=== PATIENT | male | born 1975 | race Caucasian/White ===

== ENCOUNTER → 2017-04-12 | Outpatient (CLI) | payer BC ==
--- NOTE | 2017-04-12 17:10 | RAD ---
HISTORY: Left shoulder pain. Study: Left shoulder three views Comparison: None. Findings: The appearance of the clavicle and AC joint are unremarkable. The glenohumeral articulation is norm al in its appearance. No acute cortical disruption or dislocation can be identified. The visualize d portions of the scapula are unremarkable. In addition, the visualized portions of the chest appea r unremarkable. IMPRESSION: 1. Negative exam. Reported By:
[2017-04-12 17:18] LABS: BASOPHILS # (AUTO) 0.1 X10^3/uL (0.0-0.1); BASOPHILS % (AUTO) 0.9 % (0.2-1.0); EOSINOPHILS # (AUTO) 0.2 x10^3/uL (0.0-0.2); EOSINOPHILS % (AUTO) 1.7 % (0.9-2.9); HEMATOCRIT 48.2 % (42.0-54.0); HEMOGLOBIN 16.6 g/dL (13.5-18.0); LYMPHOCYTES # (AUTO) 2.5 X10^3/uL (1.3-2.9); LYMPHOCYTES % (AUTO) 28.3 % (21.0-51.0); MEAN CORPUSCULAR HEMOGLOBIN 32.4 pg (27.0-34.0); MEAN CORPUSCULAR HGB CONC 34.5 g/dL (33.0-35.0); MEAN CORPUSCULAR VOLUME 93.9 fL (80.0-100.0); MEAN PLATELET VOLUME 8.5 fL (7.4-11.0); MONOCYTES # (AUTO) 0.9 x10^3/uL (0.3-0.8); MONOCYTES % (AUTO) 10.4 % (0.0-13.0); NEUTROPHILS # (AUTO) 5.2 x10^3/uL (2.2-4.8); NEUTROPHILS % (AUTO) 58.7 % (42.0-75.0); PLATELET COUNT 235 X10^3/uL (150.0-450.0); RED BLOOD COUNT 5.13 X10^6/uL (4.7-6.0); RED CELL DISTRIBUTION WIDTH 13.4 % (11.6-16.5); WHITE BLOOD COUNT 8.9 X10^3/uL (3.6-10.0)
[2017-04-12 17:36] LABS: ALANINE AMINOTRANSFERASE 37 Units/L (12-78); ALBUMIN 3.8 g/dL (3.4-5.0); ALKALINE PHOSPHATASE 101 Units/L (46-116); ASPARTATE AMINO TRANSFERASE 21 Units/L (15-37); BLOOD UREA NITROGEN 10 mg/dL (7-18); CALCIUM 8.8 mg/dL (8.5-10.1); CARBON DIOXIDE 30.7 mmol/L (21-32); CHLORIDE 106 mmol/L (98-107); COR NA(FOR HYPERGLY) 144 mmol/L (136-145); CREATININE 1.12 mg/dL (0.70-1.30); GLUCOSE 127 mg/dL (65-99); SODIUM 143 mmol/L (136-145); TOTAL PROTEIN 6.9 g/dL (6.4-8.2); TROPONIN I < 0.02 ng/mL (0-1.5); eGFR BLACK RACES > 60 (>60); eGFR NON BLACK RACES > 60 (>60)
[2017-04-12 18:01] LABS: TSH (3RD GENERATION) 1.379 uIU/mL (0.358-3.74)
--- NOTE | 2017-04-13 07:15 | RAD ---
The five views of the cervical spine indication: Left shoulder pain Findings: The atlantoaxial joint is symmetric. The cervical spine is well seen to the level of C7 on lateral projection. There is no fracture vertebral height loss, spondylolisthesis or prevertebral s oft tissue swelling. There is very mild discogenic degenerative change noted at C4-5, C5-6 and C6-7. Posterior elements demonstrate normal alignment. There is mild left-sided C3-4 bony neural foramina l stenosis and right-sided C3-4 and C4-5 bony neural foraminal stenosis. Impression: Mild bilateral bony neural foraminal narrowing as discussed above. No acute fracture spondylolisthes is or prevertebral soft tissue swelling within cervical spine. Reported By:
== END ==
LOC: LAB 16:27
PROVIDERS: ATTEND Nurse Practitioner Family
DX: R07.89 Other chest pain (principal); R20.0 Anesthesia of skin; M25.512 Pain in left shoulder
CPT/HCPCS: 36415; 72050; 73030; 80053; 82550; 82552; 84443; 84484; 85025

== ENCOUNTER 2023-06-09 09:46 | Inpatient (IN) ==
[~2023-06-09 09:46] MED LIST: PHENOBARBITAL SODIUM INJ 65 MG VIAL IM PRN
--- NOTE | 2023-06-09 10:06 | DR.SEIZA ---
HPI Time Seen Time Seen by Provider: 06/09/23 10:06 Complaints Chief Complaint Doctors Comments: 47 y/o male brought in by EMS. Pt was sitting on porch this am. Had sudden onset of seizure activity, generalized shaking, with LOC. Pt in post ictal state on their arrival, has since cleared. No acute injury from seizure. Pt with a h/o chronic ETOH use. Switched from 6-12 beers /day, to daily liquor. Trying to cut back. Has had senveral months of frequent vomiting. Has a 40 lb weight loss over the past 6 months. Established with a PCP 2 days ago. Labs showed K+ 2.7, started KCl yesterday, but had increased vomiting last pm, couldn't take. Reviewed Nurses Notes Reviewed: Yes Source History Provided: Patient PMH PMH Past Medical History: Yes Past Medical History Comment: Childhood seizures Past Surgical History: No Family History History of Family Medical Conditions: Yes Family Medical History: Diabetes Mellitus, Cancer, [place], Coronary Artery Disease and Hypertension Social History Does patient currently use any type of tobacco product: Yes Type of Tobacco Use: Cigarettes Alcohol Use: DAILY ROS Review of Systems Constitutional: Malaise, Weakness and Loss of Appetite Eyes: No Symptoms Reported ENTM: No Symptoms Reported Respiratoy: No Symptoms Reported Cardiovascular: No Symptoms Reported Gastrointestinal/Abdominal: Vomiting Genitourinary: No Symptoms Reported Neurological: Seizure and Weakness Musculoskeletal: No Symptoms Reported Integumentary: No Symptoms Reported Hematologic/Lymphatic: No Symptoms Reported All Other Systems: Reviewed and Negative PE Vital Signs Vitals: Vital Signs Pulse Rate 96 Pulse Rate 82 Pulse Rate 82 Respiratory Rate 27 Respiratory Rate 20 Respiratory Rate 22 O2 Sat by Pulse Oximetry 99 O2 Sat by Pulse Oximetry 98 O2 Sat by Pulse Oximetry 99 General General Appearance: Alert and In No Apparent Distress Head Head Exam: Normal Inspection, Atraumatic and Normocephalic Eyes Eye exam: PERRL and EOMI ENT ENT Exam: Normal Oropharynx and Mucous Membranes Moist Neck Neck Exam: Normal Inspection; negative Tenderness Respiratory Respiratory Exam: Normal Lung Sounds Bilat; negative Accessory Muscle Use or Respiratory Distress Cardiovascular Cardiovascular Exam: Regular Rate, Normal Rhythm and Normal Heart Sounds Abdominal Exam Abdominal Exam: Normal Inspection, Normal Bowel Sounds and Soft; negative Tenderness Extremities Extremities Exam: Normal Inspection and Full ROM; negative Edema Neurologic Neurological Exam: Alert, Oriented X3 and CN II-XII Intact; negative Motor Sensory Deficit Skin Skin Exam: Warm and Dry COURSE Treatment Treatment: 47 y/o male with seizure [employer]. + chronic alcohol use, with weight loss. W/u initiated. Givne IV fluids, IV ativan. 1245 - pt remains stable in ER. CT brain, CXR acceptable. Labs show low potassium, 2.5. Given IV KCl. Recommend admission, pt accepted by Dr Villagran. [facility]OR Labs Reviewed Laboratory Results Reviewed?: Yes Result Diagrams: 06/09/23 10:23 06/09/23 10:23 Laboratory: WBC 6.1 X10^3/uL (3.6-10.0) 06/09/23 10:23 RBC 3.73 X10^6/uL (4.7-6.0) L 06/09/23 10:23 Hgb 13.5 g/dL (13.5-18.0) 06/09/23 10:23 Hct 38.0 % (42.0-54.0) L 06/09/23 10:23 MCV 101.8 fL (80.0-100.0) H 06/09/23 10:23 MCH 36.0 pg (27.0-34.0) H 06/09/23 10:23 MCHC 35.4 g/dL (33.0-35.0) H 06/09/23 10:23 RDW 15.2 % (11.6-16.5) 06/09/23 10:23 Plt Count 131 X10^3/uL (150.0-450.0) L 06/09/23 10:23 MPV 8.4 fL (7.4-11.0) 06/09/23 10:23 Neut % (Auto) 75.6 % (42.0-75.0) H 06/09/23 10:23 Lymph % (Auto) 12.1 % (21.0-51.0) L 06/09/23 10:23 [place] % (Auto) 11.7 % (0.0-13.0) 06/09/23 10:23 Eos % (Auto) 0.2 % (0.9-2.9) L 06/09/23 10:23 Baso % (Auto) 0.4 % (0.2-1.0) 06/09/23 10:23 Neut # (Auto) 4.6 x10^3/uL (2.2-4.8) 06/09/23 10:23 Lymph # (Auto) 0.7 X10^3/uL (1.3-2.9) L 06/09/23 10:23 [place] # (Auto) 0.7 x10^3/uL (0.3-0.8) 06/09/23 10:23 Eos # (Auto) 0.0 x10^3/uL (0.0-0.2) 06/09/23 10:23 Baso # (Auto) 0.0 X10^3/uL (0.0-0.1) 06/09/23 10:23 Absolute Nucleated RBC 0.2 /100WBC 06/09/23 10:23 Sodium 131 mmol/L (136-145) L 06/09/23 10:23 Corrected Sodium 131 mmol/L (136-145) L 06/09/23 10:23 Potassium 2.5 mmol/L (3.5-5.1) L* 06/09/23 10:23 Chloride 85 mmol/L (98-107) L 06/09/23 10:23 Carbon Dioxide 31.3 mmol/L (21-32) 06/09/23 10:23 BUN 3 mg/dL (7-18) L 06/09/23 10:23 Creatinine 0.77 mg/dL (0.70-1.30) 06/09/23 10:23 Est GFR (MDRD) Af Amer > 60 (>60) 06/09/23 10:23 Est GFR (MDRD) Non-Af > 60 (>60) 06/09/23 10:23 Glucose 115 mg/dL (65-99) H 06/09/23 10:23 Calcium 8.7 mg/dL (8.5-10.1) 06/09/23 10:23 Corrected Calcium 9.3 mg/dL (8.5-10.1) 06/09/23 10:23 Total Bilirubin 1.70 mg/dL (0.2-1.0) H 06/09/23 10:23 AST 223 Units/L (15-37) H 06/09/23 10:23 ALT 64 Units/L (12-78) 06/09/23 10:23 Alkaline Phosphatase 226 Units/L (46-116) H 06/09/23 10:23 Ammonia 28 umol/L (11-32) 06/09/23 10:23 Total Protein 6.4 g/dL (6.4-8.2) 06/09/23 10:23 Albumin 3.3 g/dL (3.4-5.0) L 06/09/23 10:23 Globulin 3.1 g/dL (2.5-4.5) 06/09/23 10:23 Albumin/Globulin Ratio 1.1 Ratio (1.1-2.1) 06/09/23 10:23 Lipase 148 Units/L (73-393) 06/09/23 10:23 Vitamin B12 261 pg/mL (193-986) 06/09/23 10:23 Folate 2.5 ng/mL (>8.6) L 06/09/23 10:23 TSH 3rd Generation 0.955 uIU/mL (0.358-3.74) 06/09/23 10:23 Ethyl Alcohol mg/dL 60 mg/dL (0-19.9) H 06/09/23 10:23 K+ 2.5 XRAY XRAY Interpreted by: Both X-ray Results: CXR, CT brain - -no acute abnormalities EKG Rate: 90 [place]: Normal Rhythm: NSR Block: None ST: Normal Opioid Opioid Risk Tool Total: 0 Total Score Risk Category: Low Risk Copyright: Camilo BURROWS predicting aberrant behaviors Discharge Plan Diagnosis Discharge Problem: Acute hypokalemia, Chronic alcohol use, Vomiting, Seizure Discharge Plan Patient Disposition: ADMITTED INPATIENT Condition: Stable
[2023-06-09 10:08] VITALS: BMI 18.4
[2023-06-09] MEDS ORDERED: NS 1,000 ML IV 1,000 ML IV ONE (10:08)
[2023-06-09] MEDS ORDERED: ATIVAN TAB 1 MG PO ONE (10:10)
[2023-06-09] MEDS ORDERED: ATIVAN INJ 2 MG VIAL ONE (10:11)
[2023-06-09] MEDS ORDERED: NS 1,000 ML IV 1,000 ML ONE ×2 (10:11→11:43)
[2023-06-09] MEDS ORDERED: ATIVAN TAB 1 MG ONE (10:13)
[2023-06-09] MEDS ORDERED: ZOFRAN INJ 4 MG VIAL IVP ONE (10:17)
[2023-06-09] MEDS ORDERED: ZOFRAN INJ 4 MG VIAL ONE (10:17)
--- NOTE | 2023-06-09 10:19 | EKG ---
Test Reason : LOC Blood Pressure : */* mmHG Vent. Rate : 90 BPM Atrial Rate : 90 BPM P-R Int : 152 ms QRS Dur : 98 ms QT Int : 410 ms P-R-T Axes : 72 26 35 degrees QTc Int : 501 ms Normal sinus rhythm Normal ECG No previous ECGs available Confirmed by Renato Ambrocio ([id number]) on 06/09/2023 2:03:31 PM Referred By: Confirmed By: Renato Ambrocio
[2023-06-09 10:32] LABS: BASOPHILS % (AUTO) 0.4 % (0.2-1.0); EOSINOPHILS % (AUTO) 0.2 % (0.9-2.9); HEMOGLOBIN 13.5 g/dL (13.5-18.0); LYMPHOCYTES # (AUTO) 0.7 X10^3/uL (1.3-2.9); LYMPHOCYTES % (AUTO) 12.1 % (21.0-51.0); MEAN CORPUSCULAR HGB CONC 35.4 g/dL (33.0-35.0); MEAN CORPUSCULAR VOLUME 101.8 fL (80.0-100.0); MEAN PLATELET VOLUME 8.4 fL (7.4-11.0); MONOCYTES # (AUTO) 0.7 x10^3/uL (0.3-0.8); MONOCYTES % (AUTO) 11.7 % (0.0-13.0); NEUTROPHILS # (AUTO) 4.6 x10^3/uL (2.2-4.8); NEUTROPHILS % (AUTO) 75.6 % (42.0-75.0); PLATELET COUNT 131 X10^3/uL (150.0-450.0); RED BLOOD COUNT 3.73 X10^6/uL (4.7-6.0); RED CELL DISTRIBUTION WIDTH 15.2 % (11.6-16.5); WHITE BLOOD COUNT 6.1 X10^3/uL (3.6-10.0)
[2023-06-09 10:40] LABS: AMMONIA 28 umol/L (11-32)
[2023-06-09 10:52] LABS: ALANINE AMINOTRANSFERASE 64 Units/L (12-78); ALBUMIN 3.3 g/dL (3.4-5.0); ALKALINE PHOSPHATASE 226 Units/L (46-116); ASPARTATE AMINO TRANSFERASE 223 Units/L (15-37); BLOOD UREA NITROGEN 3 mg/dL (7-18); CALCIUM 8.7 mg/dL (8.5-10.1); CARBON DIOXIDE 31.3 mmol/L (21-32); CHLORIDE 85 mmol/L (98-107); COR CA(FOR HYPOALB) 9.3 mg/dL (8.5-10.1); COR NA(FOR HYPERGLY) 131 mmol/L (136-145); CREATININE 0.77 mg/dL (0.70-1.30); GLUCOSE 115 mg/dL (65-99); LIPASE 148 Units/L (73-393); SODIUM 131 mmol/L (136-145); TOTAL PROTEIN 6.4 g/dL (6.4-8.2); TSH (3RD GENERATION) 0.955 uIU/mL (0.358-3.74); eGFR NON BLACK RACES > 60 (>60)
[2023-06-09 11:01] LABS: POTASSIUM 2.5 mmol/L (3.5-5.1)
[2023-06-09] MEDS ORDERED: K-RIDER 10 MEQ/NS 100 ML 10 MEQ/100 ML BAG IV ONE ×2 (11:06→11:23)
--- NOTE | 2023-06-09 11:12 | CT ---
HISTORYACUTE SEIZURE, WEAKNESSSTUDYBRAIN W/O CONCOMPARISONNone.TECHNIQUEMultiple axial images of the head were performed from the skullbase to the vertex using standard departmental protocol. Sagittal and coronal reformatted images were performed. Dose reduction techniques including Automated Exposure Control (AEC) and adjustment of mA and kV were utilized.FINDINGSThe lateral ventricles and basilar cisterns are patent.No parenchymal mass or hematoma. [place]-white differentiation appears acutely preserved.No extra-axial collection.The globes are intact.No air fluid levels in the paranasal sinuses. No paranasal sinus wall thickening or sclerosis. Mastoid air cells are clear.The calvarium is intact.IMPRESSIONNo acute intracranial abnormality.Electronically signed by: Eugene Chowdhury (Jun 09, 2023 11:11:45)
[2023-06-09] MEDS ORDERED: NS 1,000 ML IV 1,000 ML IV SCH (12:00)
[2023-06-09 13:07] LABS: BILIRUBIN,URINE NEGATIVE (NEGATIVE); BLOOD/HEMOGLOBIN,URINE NEGATIVE (NEGATIVE); GLUCOSE, URINE NEGATIVE (NEGATIVE); KETONES,URINE 2+ (NEGATIVE); LEUKOCYTE ESTERASE ,URINE NEGATIVE (NEGATIVE); NITRITES,URINE NEGATIVE (NEGATIVE); PROTEIN,URINE NEGATIVE (NEGATIVE); UROBILINOGEN,URINE 3+ (NORMAL)
[2023-06-09 13:14] LABS: APPEARANCE,URINE CLEAR (CLEAR); BACTERIA,URINE TRACE /HPF (NEGATIVE); COLOR,URINE YELLOW (YELLOW); RBC,URINE 0-2 /HPF (0-3); SQUAMOUS EPITHELIAL CELL,UR RARE /HPF (NEGATIVE)
[2023-06-09] MEDS ORDERED: MOTRIN TAB 800 MG PO PRN (14:41)
[2023-06-09] MEDS ORDERED: CONSULT PHARMACY - POTASSIUM & MAGNESIUM XX SCH ×3 (14:53→15:00)
[2023-06-09] MEDS ORDERED: ZOFRAN INJ 4 MG VIAL IVP PRN (14:53)
[2023-06-09] MEDS ORDERED: ATIVAN 20 MG/10 ML VIAL IVP SCH (14:53)
[2023-06-09] MEDS ORDERED: KAOPECTATE (NEW FORMULA) PO PRN (14:54)
[2023-06-09] MEDS ORDERED: MILK OF MAGNESIA PO PRN (14:54)
[2023-06-09] MEDS ORDERED: MAALOX or MYLANTA PO PRN (14:54)
[2023-06-09] MEDS: K-DUR TAB 20 MEQ PO SCH ×2 (15:07→17:07)
[2023-06-09] MEDS ORDERED: READI-CAT 2 ONE (15:07)
[2023-06-09] MEDS: NS 1,000 ML IV 1,000 ML with MAGNESIUM SULFATE 50% INJ VIAL 1 G, MVI INJ (ADULT) 10 ML,... IV SCH ×4 (16:18)
[2023-06-09] MEDS: NICOTINE PATCH TD SCH (16:28)
[2023-06-09] MEDS: ATIVAN INJ 2 MG VIAL IVP SCH ×2 (16:29→23:48)
[2023-06-09] MEDS: THIAMINE HCL INJ IM SCH (16:30)
--- NOTE | 2023-06-09 16:59 | RAD ---
HISTORYACUTE SEIZURE, WEAKNESSSTUDYCHEST x-ray, 1 VIEWCOMPARISONNoneFINDINGSThe trachea is midline. The cardiac silhouette is unremarkable .Lungs appear clear. A few external densities are seen projected overlying the lungs. No pneumothorax or pleural effusion is seen.No acute bony abnormality is seen.IMPRESSIONNo acute cardiopulmonary abnormality is seen.Electronically signed by: Kj Vidal (Jun 09, 2023 16:57:26)
[2023-06-09] MEDS: PHENOBARBITAL TAB 30 MG (32.4MG) PO SCH ×2 (17:07→20:36)
[2023-06-09] MEDS ORDERED: OMNIPAQUE 350 mg/mL 100 mL BTL 100 ML ONE (17:21)
[2023-06-09] MEDS ORDERED: NS 100 ML IV 100 ML ONE (17:21)
[2023-06-09] MEDS ORDERED: MICRO K EXTEN CAP 10 MEQ PO SCH (19:00)
--- NOTE | 2023-06-09 19:03 | CT ---
HISTORYabdominal pain, elevated liver enzymesSTUDYABDOMEN/PELVIS WITH CONCOMPARISONTECHNIQUEMultiple axial images of the abdomen and pelvis were obtained from the lung bases to the pubic symphysis after the administration of IV contrast. Dose reduction techniques including Automated Exposure Control (AEC) and adjustment of mA and kV were utilized.FINDINGSThe lung bases are clear without effusion. The heart size is normal. There is diffuse fatty infiltration of the liver. There is nonspecific wall thickening in the gallbladder. The pancreas, spleen, adrenal glands, and kidneys are normal. The stomach is grossly normal. The small bowel loops are normal. The appendix is normal. There is nonspecific wall thickening in the proximal colon. There are scattered diverticula in the distal colon but no diverticulitis. Bladder wall is thickened. The prostate measures 3.8 cm in diameter. There is no worrisome bone marrow lesion.IMPRESSION1. Fatty infiltration of the liver. 2. Nonspecific gallbladder wall thickening. 3. Nonspecific wall thickening in the proximal colon which could be some form of colitis. 4. Mild diverticulosis in the distal colon.Electronically signed by: Regan Parker (Jun 09, 2023 19:02:37)
[2023-06-09] MEDS ORDERED: NS + KCL 20 MEQ/L 1,000 ML IV SCH (21:00)
[2023-06-09] MEDS: MAGNESIUM SULFATE 1 GRAM/100 mL PREMIX 1 G/100 ML BAG IV SCH (22:02)
[2023-06-09] MEDS: AMBIEN PO SCH (23:47)
[2023-06-10 00:01] VITALS: RESP 20
[2023-06-10] MEDS: MAGNESIUM SULFATE 1 GRAM/100 mL PREMIX 1 G/100 ML BAG IV SCH ×3 (05:50→21:58)
[2023-06-10 06:40] LABS: BASOPHILS % (AUTO) 0.3 % (0.2-1.0); EOSINOPHILS % (AUTO) 0.8 % (0.9-2.9); HEMATOCRIT 34.8 % (42.0-54.0); HEMOGLOBIN 12.4 g/dL (13.5-18.0); LYMPHOCYTES # (AUTO) 1.2 X10^3/uL (1.3-2.9); LYMPHOCYTES % (AUTO) 21.5 % (21.0-51.0); MEAN CORPUSCULAR HEMOGLOBIN 36.4 pg (27.0-34.0); MEAN CORPUSCULAR HGB CONC 35.6 g/dL (33.0-35.0); MEAN CORPUSCULAR VOLUME 102.2 fL (80.0-100.0); MEAN PLATELET VOLUME 8.9 fL (7.4-11.0); MONOCYTES # (AUTO) 0.6 x10^3/uL (0.3-0.8); MONOCYTES % (AUTO) 11.1 % (0.0-13.0); NEUTROPHILS # (AUTO) 3.7 x10^3/uL (2.2-4.8); NEUTROPHILS % (AUTO) 66.3 % (42.0-75.0); PLATELET COUNT 111 X10^3/uL (150.0-450.0); RED BLOOD COUNT 3.41 X10^6/uL (4.7-6.0); RED CELL DISTRIBUTION WIDTH 15.3 % (11.6-16.5); WHITE BLOOD COUNT 5.6 X10^3/uL (3.6-10.0)
[2023-06-10 06:49] LABS: ALANINE AMINOTRANSFERASE 54 Units/L (12-78); ALBUMIN 2.7 g/dL (3.4-5.0); ALKALINE PHOSPHATASE 204 Units/L (46-116); ASPARTATE AMINO TRANSFERASE 229 Units/L (15-37); BLOOD UREA NITROGEN 2 mg/dL (7-18); CALCIUM 8.2 mg/dL (8.5-10.1); CARBON DIOXIDE 35.9 mmol/L (21-32); CHLORIDE 96 mmol/L (98-107); COR CA(FOR HYPOALB) 9.2 mg/dL (8.5-10.1); CREATININE 0.65 mg/dL (0.70-1.30); GLUCOSE 95 mg/dL (65-99); POTASSIUM 3.3 mmol/L (3.5-5.1); SODIUM 137 mmol/L (136-145); TOTAL PROTEIN 5.5 g/dL (6.4-8.2); eGFR NON BLACK RACES > 60 (>60)
[2023-06-10] MEDS ORDERED: CONSULT PHARMACY - POTASSIUM & MAGNESIUM XX SCH (08:00)
--- NOTE | 2023-06-10 08:26 | DR.H&P ---
H&P History & Physical for Day of: H&P Date: 06/09/23 Chief Complaint Chief Complaint: Seizure like episode Weakness Abdominal pain/nausea and vomiting Weight loss Allergies Allergies Allergy/AdvReac Type Severity Reaction Status Date / Time Pencillin AdvReac Severe Uncoded 06/07/23 09:57 History of Present Illness History of Present Illness: Pt is a 47 year old male past medical history Alcohol abuse presenting after a "seizure like" event. Per son, pt was found around 9AM on ground and "tensed" up with "jerking" movements that lasted a few minutes. Pt did not have have urinary/bowel incontinence after episode but did have a headache. He reports a history of seizure but only in childhood and has not had any since he was 12 years old. He is currently a heavy alcohol user, drinking a "pint" of liquor a day. He has been trying to decrease his alcohol intake. Reports abdominal pain with nausea and vomiting. He has lost 40 lbs over the past year. Labs/imaging: Wbc 6.1, Hgb 13.5, Plt 131, Na 131, K 2.5, Creatinine 0.77, Glucose 115, AST 223, ALT 64, ALKP 226, +EtOH, UA negative, Brain CT was obtained that revealed no acute intracranial abnormalities. CXR: negative. Pt was admitted for Seizure episode likely due to Alcohol withdrawal, Acute hypokalemia, Elevated liver enzymes, and abnormal weight loss. Will start on Detox protocol and IV ativan 1mg q8h, monitor withdrawal symptoms. Will order CT abdomen and pelvis, hepatitis panel, CEA, CA 19-9, and GGT. Consult surgery- Dr Washburn for further evaluation. Continue to closely monitor and follow up labs/imaging. Past Medical History Past Medical History: Seizures Past Surgical History Surgical History: Other Family History Family Medical History: Diabetes Mellitus, Cancer, [place], Coronary Artery Disease and Hypertension Social History Does patient currently use any type of tobacco product: Yes Have you used tobacco products in the last 12 months: Yes Type of Tobacco Use: Cigarettes Does any household member use tobacco: Yes Alcohol Use: DAILY Drug Use: None Labs Result Diagrams: 06/10/23 05:45 06/10/23 05:45 Labs: Laboratory WBC 5.6 X10^3/uL (3.6-10.0) 06/10/23 05:45 RBC 3.41 X10^6/uL (4.7-6.0) L 06/10/23 05:45 Hgb 12.4 g/dL (13.5-18.0) L 06/10/23 05:45 Hct 34.8 % (42.0-54.0) L 06/10/23 05:45 MCV 102.2 fL (80.0-100.0) H 06/10/23 05:45 MCH 36.4 pg (27.0-34.0) H 06/10/23 05:45 MCHC 35.6 g/dL (33.0-35.0) H 06/10/23 05:45 RDW 15.3 % (11.6-16.5) 06/10/23 05:45 Plt Count 111 X10^3/uL (150.0-450.0) L 06/10/23 05:45 MPV 8.9 fL (7.4-11.0) 06/10/23 05:45 Neut % (Auto) 66.3 % (42.0-75.0) 06/10/23 05:45 Lymph % (Auto) 21.5 % (21.0-51.0) 06/10/23 05:45 [place] % (Auto) 11.1 % (0.0-13.0) 06/10/23 05:45 Eos % (Auto) 0.8 % (0.9-2.9) L 06/10/23 05:45 Baso % (Auto) 0.3 % (0.2-1.0) 06/10/23 05:45 Neut # (Auto) 3.7 x10^3/uL (2.2-4.8) 06/10/23 05:45 Lymph # (Auto) 1.2 X10^3/uL (1.3-2.9) L 06/10/23 05:45 [place] # (Auto) 0.6 x10^3/uL (0.3-0.8) 06/10/23 05:45 Eos # (Auto) 0.0 x10^3/uL (0.0-0.2) 06/10/23 05:45 Baso # (Auto) 0.0 X10^3/uL (0.0-0.1) 06/10/23 05:45 Absolute Nucleated RBC 0.4 /100WBC 06/10/23 05:45 Sodium 137 mmol/L (136-145) 06/10/23 05:45 Corrected Sodium TNP 06/10/23 05:45 Potassium 3.3 mmol/L (3.5-5.1) L 06/10/23 05:45 Chloride 96 mmol/L (98-107) L 06/10/23 05:45 Carbon Dioxide 35.9 mmol/L (21-32) H 06/10/23 05:45 BUN 2 mg/dL (7-18) L 06/10/23 05:45 Creatinine 0.65 mg/dL (0.70-1.30) L 06/10/23 05:45 Est GFR (MDRD) Af Amer > 60 (>60) 06/10/23 05:45 Est GFR (MDRD) Non-Af > 60 (>60) 06/10/23 05:45 Glucose 95 mg/dL (65-99) 06/10/23 05:45 Calcium 8.2 mg/dL (8.5-10.1) L 06/10/23 05:45 Corrected Calcium 9.2 mg/dL (8.5-10.1) 06/10/23 05:45 Magnesium 2.1 mg/dL (2.0-2.9) 06/10/23 05:45 Total Bilirubin 2.20 mg/dL (0.2-1.0) H 06/10/23 05:45 AST 229 Units/L (15-37) H 06/10/23 05:45 ALT 54 Units/L (12-78) 06/10/23 05:45 Alkaline Phosphatase 204 Units/L (46-116) H 06/10/23 05:45 Ammonia 28 umol/L (11-32) 06/09/23 10:23 Total Protein 5.5 g/dL (6.4-8.2) L 06/10/23 05:45 Albumin 2.7 g/dL (3.4-5.0) L 06/10/23 05:45 Globulin 2.8 g/dL (2.5-4.5) 06/10/23 05:45 Albumin/Globulin Ratio 1.0 Ratio (1.1-2.1) L 06/10/23 05:45 Lipase 148 Units/L (73-393) 06/09/23 10:23 Vitamin B12 261 pg/mL (193-986) 06/09/23 10:23 Folate 2.5 ng/mL (>8.6) L 06/09/23 10:23 TSH 3rd Generation 0.955 uIU/mL (0.358-3.74) 06/09/23 10:23 Specimen Type Random urine 06/09/23 12:52 Urine Color Yellow (YELLOW) 06/09/23 12:52 Urine Appearance Clear (CLEAR) 06/09/23 12:52 Urine pH 7.0 (5.0 - 8.0) 06/09/23 12:52 Ur Specific [place] 1.015 (1.000-1.030) 06/09/23 12:52 Urine Protein Negative (NEGATIVE) 06/09/23 12:52 Urine Glucose (UA) Negative (NEGATIVE) 06/09/23 12:52 Urine Ketones 2+ (NEGATIVE) 06/09/23 12:52 Urine Blood Negative (NEGATIVE) 06/09/23 12:52 Urine Nitrite Negative (NEGATIVE) 06/09/23 12:52 Urine Bilirubin Negative (NEGATIVE) 06/09/23 12:52 Urine Urobilinogen 3+ (NORMAL) 06/09/23 12:52 Ur Leukocyte Esterase Negative (NEGATIVE) 06/09/23 12:52 Urine RBC 0-2 /HPF (0-3) 06/09/23 12:52 Urine WBC None seen /HPF (0-5) 06/09/23 12:52 Ur Squamous Epith Cells Rare /HPF (NEGATIVE) 06/09/23 12:52 Urine Bacteria Trace /HPF (NEGATIVE) 06/09/23 12:52 Ur Culture Indicated? No/not indicated 06/09/23 12:52 Urine Opiates Screen Negative (NEG=<300) 06/09/23 12:52 Urine Methadone Screen Negative (NEG=<300) 06/09/23 12:52 Ur Barbiturates Screen Negative (NEG=<200) 06/09/23 12:52 Ur Phencyclidine Scrn Negative (NEG=<25) 06/09/23 12:52 Ur Amphetamines Screen Negative (NEG=<1000) 06/09/23 12:52 U Benzodiazepines Scrn Negative (NEG=<200) 06/09/23 12:52 Urine Cocaine Screen Negative (NEG=<300) 06/09/23 12:52 U Marijuana (THC) Screen Negative (NEG=<50) 06/09/23 12:52 Ethyl Alcohol mg/dL 60 mg/dL (0-19.9) H 06/09/23 10:23 Review of Systems Constitutional: Weakness Eyes: No Symptoms Reported ENT: No Symptoms Reported Respiratory: No Symptoms Reported Cardiovascular: No Symptoms Reported Gastrointestinal: Nausea, Vomiting and Abdominal Pain Genitourinary: No Symptoms Reported Musculoskeletal: No Symptoms Reported Skin: No Symptoms Reported Neurological: Seizures Physical Exam Vital Signs: Vital Signs Temperature 98.8 F Pulse Rate [Brachial] 94 Respiratory Rate 20 Blood Pressure [Right Arm] 89/53 O2 Sat by Pulse Oximetry 93 Oriented: Normal Eyes: Normal Ear: Normal Nose: Normal Throat: Normal Respiratory: Clear Throughout Cardiovascular: Normal : Normal Auscultation: Bowel Sounds: Normal Palpation: Normal Tenderness: Epigastric Skin: Normal Musculoskeletal: Normal Psychiatric: Normal Mood Description: Calm and Appropriate Affect: Normal Speech Pattern: Clear and Appropriate Assessment/Plan (1) Chronic alcohol use: Status: Acute Plan: Detox protocol (2) Acute hypokalemia: Status: Acute Plan: Replete per protocol (3) Vomiting: Status: Acute (4) Seizure: Status: Acute Plan: Will need referral to neurology outpatient Likely due to alcohol withdrawal (5) Weight loss, unintentional: Status: Acute (6) Elevated liver enzymes: Status: Acute (7) Alcohol withdrawal: Status: Acute Review H&P Reviewed: Yes Patient was examined?: Yes
[2023-06-10] MEDS: ATIVAN INJ 2 MG VIAL IVP SCH ×3 (09:34→23:26)
[2023-06-10] MEDS: NICOTINE PATCH TD SCH (09:34)
[2023-06-10] MEDS: THIAMINE HCL INJ IM SCH (09:39)
[2023-06-10] MEDS: K-DUR TAB 20 MEQ PO SCH ×2 (09:54→16:00)
[2023-06-10] MEDS: PHENOBARBITAL TAB 30 MG (32.4MG) PO SCH ×4 (09:54→20:10)
[2023-06-10] MEDS ORDERED: NS 500 ML IV 500 ML IV ONE (14:46)
[2023-06-10] MEDS ORDERED: DIPRIVAN VIAL 20 ML ONE (14:48)
[2023-06-10] MEDS: NS 1,000 ML IV 1,000 ML with MAGNESIUM SULFATE 50% INJ VIAL 1 G, MVI INJ (ADULT) 10 ML,... IV SCH ×8 (15:50→17:49)
[2023-06-10] MEDS: PROTONIX INJ 40 MG VIAL IVP SCH ×2 (15:59→20:09)
[2023-06-10] MEDS: LIBRIUM PO PRN (20:10)
[2023-06-10] MEDS: AMBIEN PO SCH (20:10)
[2023-06-11] MEDS: MAGNESIUM SULFATE 1 GRAM/100 mL PREMIX 1 G/100 ML BAG IV SCH ×2 (05:20→13:00)
[2023-06-11] MEDS: LIBRIUM PO PRN (05:21)
[2023-06-11 06:36] LABS: BASOPHILS % (AUTO) 0.6 % (0.2-1.0); EOSINOPHILS % (AUTO) 0.8 % (0.9-2.9); HEMATOCRIT 33.2 % (42.0-54.0); HEMOGLOBIN 11.5 g/dL (13.5-18.0); LYMPHOCYTES # (AUTO) 1.1 X10^3/uL (1.3-2.9); MEAN CORPUSCULAR HEMOGLOBIN 36.1 pg (27.0-34.0); MEAN CORPUSCULAR HGB CONC 34.8 g/dL (33.0-35.0); MEAN CORPUSCULAR VOLUME 103.7 fL (80.0-100.0); MEAN PLATELET VOLUME 9.1 fL (7.4-11.0); MONOCYTES # (AUTO) 0.6 x10^3/uL (0.3-0.8); MONOCYTES % (AUTO) 11.1 % (0.0-13.0); NEUTROPHILS # (AUTO) 3.5 x10^3/uL (2.2-4.8); NEUTROPHILS % (AUTO) 66.5 % (42.0-75.0); PLATELET COUNT 116 X10^3/uL (150.0-450.0); RED CELL DISTRIBUTION WIDTH 15.9 % (11.6-16.5); WHITE BLOOD COUNT 5.3 X10^3/uL (3.6-10.0)
[2023-06-11 07:01] LABS: ALANINE AMINOTRANSFERASE 53 Units/L (12-78); ALBUMIN 2.4 g/dL (3.4-5.0); ALKALINE PHOSPHATASE 221 Units/L (46-116); ASPARTATE AMINO TRANSFERASE 190 Units/L (15-37); BLOOD UREA NITROGEN 3 mg/dL (7-18); CALCIUM 7.3 mg/dL (8.5-10.1); CARBON DIOXIDE 28.2 mmol/L (21-32); CHLORIDE 100 mmol/L (98-107); COR CA(FOR HYPOALB) 8.6 mg/dL (8.5-10.1); CREATININE 0.58 mg/dL (0.70-1.30); GLUCOSE 110 mg/dL (65-99); POTASSIUM 3.1 mmol/L (3.5-5.1); SODIUM 137 mmol/L (136-145); eGFR NON BLACK RACES > 60 (>60)
[2023-06-11] MEDS ORDERED: CONSULT PHARMACY - POTASSIUM & MAGNESIUM XX SCH ×2 (08:00→09:00)
[2023-06-11] MEDS ORDERED: NS 1,000 ML IV 1,000 ML with MAGNESIUM SULFATE 50% INJ VIAL 1 G, MVI INJ (ADULT) 10 ML,... IV SCH ×4 (09:00)
[2023-06-11] MEDS: ATIVAN INJ 2 MG VIAL IVP SCH (09:20)
[2023-06-11] MEDS: PROTONIX INJ 40 MG VIAL IVP SCH (09:22)
[2023-06-11] MEDS: POTASSIUM CHLORIDE LIQ PO SCH ×2 (09:23→11:10)
[2023-06-11] MEDS: NICOTINE PATCH TD SCH (09:23)
[2023-06-11] MEDS: PHENOBARBITAL TAB 30 MG (32.4MG) PO SCH ×2 (09:24→12:56)
[2023-06-11] MEDS: THIAMINE HCL INJ IM SCH (09:24)
--- NOTE | 2023-06-11 11:14 | PCM.PROG ---
Progress Note Progress Note for Day of Date of Exam: 06/10/23 Subjective Subjective: Pt is a 47 year old male past medical history Alcohol abuse admitted for alcohol withdrawal, and seizure episode. This morning patient reports some improvement in his symptoms. Medication has been helping with withdrawal. No acute events overnight. Labs/imaging: Wbc 5.6, Hgb 12.4, Plt 111, Na 137, K 3.3, Creatinine 0.65, Glucose 95, CT abdomen and pelvis was obtained that revealed: 1.Fatty infiltration of the liver. 2. Nonspecific gallbladder wall thickening. 3. Nonspecific wall thickening in the proximal colon which could be some form of colitis. 4. Mild diverticulosis in the distal colon. Hepatitis panel, CEA, CA 19-9, and GGT pending. Continue with Detox protocol and IV ativan 1mg q8h, monitor withdrawal symptoms. Replete electrolytes per protocol. Consulted surgery-Dr Washburn, plan for EGD today. Otherwise continue with current treatment plan. Closely monitor and follow up labs/imaging. Past Medical Family Social History Allergies: Allergies Pencillin Adverse Reaction (Severe, Uncoded 06/07/23 09:57) Review of Systems ROS changes noted: see HPI Vital Signs and I&O's Vital Signs: Vital Signs Temperature 100.1 F Pulse Rate [Brachial] 102 Respiratory Rate 20 Blood Pressure [Right Arm] 107/78 O2 Sat by Pulse Oximetry 94 Intake and Output: Intake & Output 06/08/23 06/09/23 06/10/23 06/11/23 23:59 23:59 23:59 23:59 Intake Total 870 / 870 900 / 900 120 / 120 Balance 870 / 870 900 / 900 120 / 120 Physical Exam Oriented: Normal Eyes: Normal Ear: Normal Nose: Normal Throat: Normal Respiratory: Normal Cardiovascular: Normal : Normal Auscultation: Bowel Sounds: Normal Tenderness: Epigastric Skin: Normal Musculoskeletal: Normal Psychiatric: Normal Mood Description: Calm and Appropriate Affect: Normal Speech Pattern: Clear and Appropriate Laboratory and Diagnostics Result Diagrams: 06/11/23 05:55 06/11/23 05:55 Labs: Laboratory WBC 5.3 X10^3/uL (3.6-10.0) 06/11/23 05:55 RBC 3.20 X10^6/uL (4.7-6.0) L 06/11/23 05:55 Hgb 11.5 g/dL (13.5-18.0) L 06/11/23 05:55 Hct 33.2 % (42.0-54.0) L 06/11/23 05:55 MCV 103.7 fL (80.0-100.0) H 06/11/23 05:55 MCH 36.1 pg (27.0-34.0) H 06/11/23 05:55 MCHC 34.8 g/dL (33.0-35.0) 06/11/23 05:55 RDW 15.9 % (11.6-16.5) 06/11/23 05:55 Plt Count 116 X10^3/uL (150.0-450.0) L 06/11/23 05:55 MPV 9.1 fL (7.4-11.0) 06/11/23 05:55 Neut % (Auto) 66.5 % (42.0-75.0) 06/11/23 05:55 Lymph % (Auto) 21.0 % (21.0-51.0) 06/11/23 05:55 [place] % (Auto) 11.1 % (0.0-13.0) 06/11/23 05:55 Eos % (Auto) 0.8 % (0.9-2.9) L 06/11/23 05:55 Baso % (Auto) 0.6 % (0.2-1.0) 06/11/23 05:55 Neut # (Auto) 3.5 x10^3/uL (2.2-4.8) 06/11/23 05:55 Lymph # (Auto) 1.1 X10^3/uL (1.3-2.9) L 06/11/23 05:55 [place] # (Auto) 0.6 x10^3/uL (0.3-0.8) 06/11/23 05:55 Eos # (Auto) 0.0 x10^3/uL (0.0-0.2) 06/11/23 05:55 Baso # (Auto) 0.0 X10^3/uL (0.0-0.1) 06/11/23 05:55 Absolute Nucleated RBC 0.4 /100WBC 06/11/23 05:55 Sodium 137 mmol/L (136-145) 06/11/23 05:55 Corrected Sodium TNP 06/11/23 05:55 Potassium 3.1 mmol/L (3.5-5.1) L 06/11/23 05:55 Chloride 100 mmol/L (98-107) 06/11/23 05:55 Carbon Dioxide 28.2 mmol/L (21-32) 06/11/23 05:55 BUN 3 mg/dL (7-18) L 06/11/23 05:55 Creatinine 0.58 mg/dL (0.70-1.30) L 06/11/23 05:55 Est GFR (MDRD) Af Amer > 60 (>60) 06/11/23 05:55 Est GFR (MDRD) Non-Af > 60 (>60) 06/11/23 05:55 Glucose 110 mg/dL (65-99) H 06/11/23 05:55 Calcium 7.3 mg/dL (8.5-10.1) L 06/11/23 05:55 Corrected Calcium 8.6 mg/dL (8.5-10.1) 06/11/23 05:55 Magnesium 2.1 mg/dL (2.0-2.9) 06/10/23 05:45 Total Bilirubin 1.00 mg/dL (0.2-1.0) 06/11/23 05:55 AST 190 Units/L (15-37) H 06/11/23 05:55 ALT 53 Units/L (12-78) 06/11/23 05:55 Alkaline Phosphatase 221 Units/L (46-116) H 06/11/23 05:55 Ammonia 28 umol/L (11-32) 06/09/23 10:23 Total Protein 5.0 g/dL (6.4-8.2) L 06/11/23 05:55 Albumin 2.4 g/dL (3.4-5.0) L 06/11/23 05:55 Globulin 2.6 g/dL (2.5-4.5) 06/11/23 05:55 Albumin/Globulin Ratio 0.9 Ratio (1.1-2.1) L 06/11/23 05:55 Lipase 148 Units/L (73-393) 06/09/23 10:23 Vitamin B12 261 pg/mL (193-986) 06/09/23 10:23 Folate 2.5 ng/mL (>8.6) L 06/09/23 10:23 TSH 3rd Generation 0.955 uIU/mL (0.358-3.74) 06/09/23 10:23 Specimen Type Random urine 06/09/23 12:52 Urine Color Yellow (YELLOW) 06/09/23 12:52 Urine Appearance Clear (CLEAR) 06/09/23 12:52 Urine pH 7.0 (5.0 - 8.0) 06/09/23 12:52 Ur Specific [place] 1.015 (1.000-1.030) 06/09/23 12:52 Urine Protein Negative (NEGATIVE) 06/09/23 12:52 Urine Glucose (UA) Negative (NEGATIVE) 06/09/23 12:52 Urine Ketones 2+ (NEGATIVE) 06/09/23 12:52 Urine Blood Negative (NEGATIVE) 06/09/23 12:52 Urine Nitrite Negative (NEGATIVE) 06/09/23 12:52 Urine Bilirubin Negative (NEGATIVE) 06/09/23 12:52 Urine Urobilinogen 3+ (NORMAL) 06/09/23 12:52 Ur Leukocyte Esterase Negative (NEGATIVE) 06/09/23 12:52 Urine RBC 0-2 /HPF (0-3) 06/09/23 12:52 Urine WBC None seen /HPF (0-5) 06/09/23 12:52 Ur Squamous Epith Cells Rare /HPF (NEGATIVE) 06/09/23 12:52 Urine Bacteria Trace /HPF (NEGATIVE) 06/09/23 12:52 Ur Culture Indicated? No/not indicated 06/09/23 12:52 Urine Opiates Screen Negative (NEG=<300) 06/09/23 12:52 Urine Methadone Screen Negative (NEG=<300) 06/09/23 12:52 Ur Barbiturates Screen Negative (NEG=<200) 06/09/23 12:52 Ur Phencyclidine Scrn Negative (NEG=<25) 06/09/23 12:52 Ur Amphetamines Screen Negative (NEG=<1000) 06/09/23 12:52 U Benzodiazepines Scrn Negative (NEG=<200) 06/09/23 12:52 Urine Cocaine Screen Negative (NEG=<300) 06/09/23 12:52 U Marijuana (THC) Screen Negative (NEG=<50) 06/09/23 12:52 Ethyl Alcohol mg/dL 60 mg/dL (0-19.9) H 06/09/23 10:23 Plan (1) Chronic alcohol use: Status: Acute Plan: Detox protocol (2) Acute hypokalemia: Status: Acute Plan: Replete per protocol (3) Vomiting: Status: Acute (4) Seizure: Status: Acute Plan: Will need referral to neurology outpatient Likely due to alcohol withdrawal (5) Weight loss, unintentional: Status: Acute (6) Elevated liver enzymes: Status: Acute (7) Alcohol withdrawal: Status: Acute
[2023-06-11 12:28] VITALS: BP 134/87; PULSE 96; TEMP 98; O2SAT 97
--- NOTE | 2023-06-11 20:01 | W.DIS.FURT ---
Summary of Discharge Discharge Summary of Date Date of Exam: 06/11/23 Admission Date Date of Admission: 06/09/23 Admission Diagnosis Patient Problems (Updated 06/10/23 @ 08:24 by Azael Villagran) Acute hypokalemia (Acute) E87.6 Chronic alcohol use (Acute) F10.90 Vomiting (Acute) R11.10 Seizure (Acute) R56.9 Hospital Course: Pt is a 47 year old male past medical history Alcohol abuse admitted for alcohol withdrawal, and seizure episode. His hospital/treatment course included: Detox protocol and IV ativan 1mg q8h, monitor withdrawal symptoms. Electrolytes were repleted per protocol. General surgery was consulted-Dr Washburn, EGD was perfored that revealed gastritis and esophagitis with some erosion. Recommended protonix BID and follow up outpatient. Labs/imaging: Wbc 5.3, Hgb 11.5, Plt 116, Na 137, K 3.9, Creatinine 0.58, Glucose 110, CT abdomen and pelvis was obtained that revealed: 1.Fatty infiltration of the liver. 2. Nonspecific gallbladder wall thickening. 3. Nonspecific wall thickening in the proximal colon which could be some form of colitis. 4. Mild diverticulosis in the distal colon. Hepatitis panel, CEA, CA 19-9, and GGT pending, will need to follow up outpatient with pcp. Pt responded well to treatment. Symptoms resolved. He was given prescription for librium for alcohol withdrawal and educated to take if he decides to stop drinking. He was also instructed not to take if he is to resume his alcohol intake. Pt discharged in stable condition. Instructed to follow up with pcp and general surgery in 1-2 weeks. Vital Signs: Vital Signs (72 hours) 06/09/23 10:01 06/09/23 10:06 06/09/23 10:15 Temperature 98.1 F Pulse Rate 101 H 93 H 96 H Pulse Rate [Brachial] Respiratory Rate 20 26 H 48 H Blood Pressure 138/85 Blood Pressure [Right Arm] O2 Sat by Pulse Oximetry 99 98 99 Oxygen Delivery Method Room Air 06/09/23 10:37 06/09/23 10:45 06/09/23 11:00 Temperature Pulse Rate 82 79 77 Pulse Rate [Brachial] Respiratory Rate Blood Pressure Blood Pressure [Right Arm] O2 Sat by Pulse Oximetry 98 98 99 Oxygen Delivery Method 06/09/23 11:15 06/09/23 11:30 06/09/23 11:45 Temperature Pulse Rate 70 79 79 Pulse Rate [Brachial] Respiratory Rate Blood Pressure Blood Pressure [Right Arm] O2 Sat by Pulse Oximetry 98 98 98 Oxygen Delivery Method 06/09/23 12:00 06/09/23 12:15 06/09/23 12:30 Temperature Pulse Rate 82 82 96 H Pulse Rate [Brachial] Respiratory Rate 22 20 27 H Blood Pressure Blood Pressure [Right Arm] O2 Sat by Pulse Oximetry 99 98 99 Oxygen Delivery Method 06/09/23 12:45 06/09/23 13:00 06/09/23 13:15 Temperature Pulse Rate 109 H 81 82 Pulse Rate [Brachial] Respiratory Rate 34 H 21 27 H Blood Pressure Blood Pressure [Right Arm] O2 Sat by Pulse Oximetry 97 99 99 Oxygen Delivery Method 06/09/23 16:35 06/09/23 16:00 06/09/23 20:35 Temperature 99.1 F Pulse Rate Pulse Rate [Brachial] 115 H Respiratory Rate 20 18 Blood Pressure Blood Pressure [Right Arm] 135/82 O2 Sat by Pulse Oximetry 96 Oxygen Delivery Method Room Air Room Air 06/09/23 20:00 06/09/23 21:35 06/09/23 19:00 Temperature 100.0 F H Pulse Rate Pulse Rate [Brachial] 98 H Respiratory Rate 20 16 Blood Pressure Blood Pressure [Right Arm] 98/60 O2 Sat by Pulse Oximetry 95 Oxygen Delivery Method Room Air Room Air 06/10/23 00:00 06/10/23 04:00 06/10/23 07:00 Temperature 98.7 F 98.8 F Pulse Rate Pulse Rate [Brachial] 89 94 H Respiratory Rate 20 20 Blood Pressure Blood Pressure [Right Arm] 105/67 89/53 O2 Sat by Pulse Oximetry 95 93 L Oxygen Delivery Method Room Air Room Air Room Air 06/10/23 08:00 06/10/23 12:00 06/10/23 15:10 Temperature 97.7 F 98.6 F 97.6 F Pulse Rate Pulse Rate [Brachial] 88 89 80 Respiratory Rate 20 20 18 Blood Pressure Blood Pressure [Right Arm] 115/77 108/80 104/65 O2 Sat by Pulse Oximetry 97 97 94 L Oxygen Delivery Method Room Air Room Air 06/10/23 15:25 06/10/23 15:40 06/10/23 15:55 Temperature 97.5 F L 97.8 F 97.8 F Pulse Rate Pulse Rate [Brachial] 78 64 95 H Respiratory Rate 18 20 20 Blood Pressure Blood Pressure [Right Arm] 107/69 111/72 128/90 O2 Sat by Pulse Oximetry 95 99 100 Oxygen Delivery Method 06/10/23 16:10 06/10/23 19:00 06/10/23 20:00 Temperature 97.8 F 98.3 F Pulse Rate Pulse Rate [Brachial] 92 H 104 H Respiratory Rate 20 20 Blood Pressure Blood Pressure [Right Arm] 124/81 104/67 O2 Sat by Pulse Oximetry 100 98 Oxygen Delivery Method Room Air Room Air 06/10/23 23:32 06/11/23 04:00 06/11/23 07:00 Temperature 98.8 F 100.1 F H Pulse Rate Pulse Rate [Brachial] 99 H 102 H Respiratory Rate 20 20 Blood Pressure Blood Pressure [Right Arm] 112/79 107/78 O2 Sat by Pulse Oximetry 95 94 L Oxygen Delivery Method Room Air Room Air Room Air Labs: Laboratory Last Values WBC 5.3 X10^3/uL (3.6-10.0) 06/11/23 05:55 RBC 3.20 X10^6/uL (4.7-6.0) L 06/11/23 05:55 Hgb 11.5 g/dL (13.5-18.0) L 06/11/23 05:55 Hct 33.2 % (42.0-54.0) L 06/11/23 05:55 MCV 103.7 fL (80.0-100.0) H 06/11/23 05:55 MCH 36.1 pg (27.0-34.0) H 06/11/23 05:55 MCHC 34.8 g/dL (33.0-35.0) 06/11/23 05:55 RDW 15.9 % (11.6-16.5) 06/11/23 05:55 Plt Count 116 X10^3/uL (150.0-450.0) L 06/11/23 05:55 MPV 9.1 fL (7.4-11.0) 06/11/23 05:55 Neut % (Auto) 66.5 % (42.0-75.0) 06/11/23 05:55 Lymph % (Auto) 21.0 % (21.0-51.0) 06/11/23 05:55 Newton % (Auto) 11.1 % (0.0-13.0) 06/11/23 05:55 Eos % (Auto) 0.8 % (0.9-2.9) L 06/11/23 05:55 Baso % (Auto) 0.6 % (0.2-1.0) 06/11/23 05:55 Neut # (Auto) 3.5 x10^3/uL (2.2-4.8) 06/11/23 05:55 Lymph # (Auto) 1.1 X10^3/uL (1.3-2.9) L 06/11/23 05:55 Newton # (Auto) 0.6 x10^3/uL (0.3-0.8) 06/11/23 05:55 Eos # (Auto) 0.0 x10^3/uL (0.0-0.2) 06/11/23 05:55 Baso # (Auto) 0.0 X10^3/uL (0.0-0.1) 06/11/23 05:55 Absolute Nucleated RBC 0.4 /100WBC 06/11/23 05:55 Sodium 137 mmol/L (136-145) 06/11/23 05:55 Corrected Sodium TNP 06/11/23 05:55 Potassium 3.1 mmol/L (3.5-5.1) L 06/11/23 05:55 Chloride 100 mmol/L (98-107) 06/11/23 05:55 Carbon Dioxide 28.2 mmol/L (21-32) 06/11/23 05:55 BUN 3 mg/dL (7-18) L 06/11/23 05:55 Creatinine 0.58 mg/dL (0.70-1.30) L 06/11/23 05:55 Est GFR (MDRD) Af Amer > 60 (>60) 06/11/23 05:55 Est GFR (MDRD) Non-Af > 60 (>60) 06/11/23 05:55 Glucose 110 mg/dL (65-99) H 06/11/23 05:55 Calcium 7.3 mg/dL (8.5-10.1) L 06/11/23 05:55 Corrected Calcium 8.6 mg/dL (8.5-10.1) 06/11/23 05:55 Magnesium 2.1 mg/dL (2.0-2.9) 06/10/23 05:45 Total Bilirubin 1.00 mg/dL (0.2-1.0) 06/11/23 05:55 AST 190 Units/L (15-37) H 06/11/23 05:55 ALT 53 Units/L (12-78) 06/11/23 05:55 Alkaline Phosphatase 221 Units/L (46-116) H 06/11/23 05:55 Ammonia 28 umol/L (11-32) 06/09/23 10:23 Total Protein 5.0 g/dL (6.4-8.2) L 06/11/23 05:55 Albumin 2.4 g/dL (3.4-5.0) L 06/11/23 05:55 Globulin 2.6 g/dL (2.5-4.5) 06/11/23 05:55 Albumin/Globulin Ratio 0.9 Ratio (1.1-2.1) L 06/11/23 05:55 Lipase 148 Units/L (73-393) 06/09/23 10:23 Vitamin B12 261 pg/mL (193-986) 06/09/23 10:23 Folate 2.5 ng/mL (>8.6) L 06/09/23 10:23 TSH 3rd Generation 0.955 uIU/mL (0.358-3.74) 06/09/23 10:23 Specimen Type Random urine 06/09/23 12:52 Urine Color Yellow (YELLOW) 06/09/23 12:52 Urine Appearance Clear (CLEAR) 06/09/23 12:52 Urine pH 7.0 (5.0 - 8.0) 06/09/23 12:52 Ur Specific Early 1.015 (1.000-1.030) 06/09/23 12:52 Urine Protein Negative (NEGATIVE) 06/09/23 12:52 Urine Glucose (UA) Negative (NEGATIVE) 06/09/23 12:52 Urine Ketones 2+ (NEGATIVE) 06/09/23 12:52 Urine Blood Negative (NEGATIVE) 06/09/23 12:52 Urine Nitrite Negative (NEGATIVE) 06/09/23 12:52 Urine Bilirubin Negative (NEGATIVE) 06/09/23 12:52 Urine Urobilinogen 3+ (NORMAL) 06/09/23 12:52 Ur Leukocyte Esterase Negative (NEGATIVE) 06/09/23 12:52 Urine RBC 0-2 /HPF (0-3) 06/09/23 12:52 Urine WBC None seen /HPF (0-5) 06/09/23 12:52 Ur Squamous Epith Cells Rare /HPF (NEGATIVE) 06/09/23 12:52 Urine Bacteria Trace /HPF (NEGATIVE) 06/09/23 12:52 Ur Culture Indicated? No/not indicated 06/09/23 12:52 Urine Opiates Screen Negative (NEG=<300) 06/09/23 12:52 Urine Methadone Screen Negative (NEG=<300) 06/09/23 12:52 Ur Barbiturates Screen Negative (NEG=<200) 06/09/23 12:52 Ur Phencyclidine Scrn Negative (NEG=<25) 06/09/23 12:52 Ur Amphetamines Screen Negative (NEG=<1000) 06/09/23 12:52 U Benzodiazepines Scrn Negative (NEG=<200) 06/09/23 12:52 Urine Cocaine Screen Negative (NEG=<300) 06/09/23 12:52 U Marijuana (THC) Screen Negative (NEG=<50) 06/09/23 12:52 Ethyl Alcohol mg/dL 60 mg/dL (0-19.9) H 06/09/23 10:23 Reason For Visit: ACUTE HYPOKALEMIA, CHRONIC ALCOHOL MISUSE, SEIZURE Discharge Date Discharge Date: 06/11/23 Discharge Diagnosis All Active Problems (Updated 06/10/23 @ 08:24 by Azael Villagran) Alcohol withdrawal (Acute) Elevated liver enzymes (Acute) Acute hypokalemia (Acute) Chronic alcohol use (Acute) Vomiting (Acute) Seizure (Acute) Tobacco use (Acute) Screening PSA (prostate specific antigen) (Acute) Screening for cholesterol level (Acute) Wellness examination (Acute) Screening for diabetes mellitus (Acute) Weight loss, unintentional (Acute) Plan of Treatment: Continue with present treatment and follow up plan. Pt is to keep follow up appointment as instructed and take medications as ordered. Discharge Medications Discharge Medications: Pencillin Adverse Reaction (Severe, Uncoded 06/07/23 09:57) New Prescriptions chlordiazepoxide HCl 25 mg capsule 50 mg PO Q4HR 5 days #60 caps 06/11/23 [Rx] Discharge Disposition Assessment: No acute distress noted at time of discharge. Discharge Disposition: Home Discharge Condition: Stable Discharge Plan Discharge Plan Hospital Course: Pt is a 47 year old male past medical history Alcohol abuse admitted for alcohol withdrawal, and seizure episode. His hospital/treatment course included: Detox protocol and IV ativan 1mg q8h, monitor withdrawal symptoms. Electrolytes were repleted per protocol. General surgery was consulted-Dr Washburn, EGD was perfored that revealed gastritis and esophagitis with some erosion. Recommended protonix BID and follow up outpatient. Labs/imaging: Wbc 5.3, Hgb 11.5, Plt 116, Na 137, K 3.9, Creatinine 0.58, Glucose 110, CT abdomen and pelvis was obtained that revealed: 1.Fatty infiltration of the liver. 2. Nonspecific gallbladder wall thickening. 3. Nonspecific wall thickening in the proximal colon which could be some form of colitis. 4. Mild diverticulosis in the distal colon. Hepatitis panel, CEA, CA 19-9, and GGT pending, will need to follow up outpatient with pcp. Pt responded well to treatment. Symptoms resolved. He was given prescription for librium for alcohol withdrawal and educated to take if he decides to stop drinking. He was also instructed not to take if he is to resume his alcohol intake. Pt discharged in stable condition. Instructed to follow up with pcp and general surgery in 1-2 weeks. Patient Disposition: 01 HOME, SELF-CARE Condition: Stable Health Concerns: Post Hospitalization: new medications and changes needed to prevent readmission or further decline. Pt educated and given instructions on all concerns. Care Plan Goals: Problem: Pain/Alteration in Comfort Goal: Improve/ Resolve Pain; Achieve Pain Tolerance Instructions: Take pain medications as prescribed. Contact your primary care provider if your pain is unrelieved or worsens. Follow up with primary care provider as directed. Plan of Treatment: Continue with present treatment and follow up plan. Pt is to keep follow up appointment as instructed and take medications as ordered. Assessment: No acute distress noted at time of discharge. Prescriptions: New chlordiazepoxide HCl 25 mg capsule 50 mg PO Q4HR MDD 12 5 Days Qty: 60 0RF Rx Instructions: Day 1: 50mg every 4 hours, Day 2: 50mg every 6 hours, Day 3: 25mg every 6 hours, Day 4: 25mg every 12 hours, Day 5 and after: 25mg at bedtime. pantoprazole 40 mg Tablet,Delayed Release (Dr/Ec) 40 mg PO BID 30 Days Qty: 60 0RF Discontinued potassium chloride 20 mEq tablet extended release 20 meq PO BID 7 Days Qty: 14 0RF Rx Instructions: X 7 DAYS - STARTED ON 06/08/23 Follow ups/Referrals Follow ups/Referrals: Azael Villagran [STAFF PHYSICIAN] - 06/18/23 12:40 pm IVÁN DEVLIN [STAFF PHYSICIAN] - 06/29/23 10:00 am Delmis Castellano [Primary Care Provider] - 3 days Instructions Instructions: Steps to Quit Smoking, [id number], Health Risks of Smoking, Alcoholic Liver Disease, Hypokalemia, Alcohol Abuse and Nutrition, Seizure, Adult, [id number], Alcohol Withdrawal Syndrome, [id number] Stand Alone Forms: Post Hospital Follow Up Care
[2023-06-12 08:54] LABS: HEPATITIS B SURFACE ANTIGEN Negative (Negative)
[2023-06-12] MEDS ORDERED: PHENOBARBITAL TAB 15 MG (16.2MG) PO SCH (09:00)
== END 2023-06-11 14:15 | disposition home or self-care (01) | DRG 101 ==
LOC: MED/SURG 09:46 → ER 09:46 → OBSVTOIN 12:45 → MED/SURG 13:31
PROVIDERS: ADMIT Family Medicine; ATTEND Family Medicine
DX: Y90.3 Blood alcohol level of 60-79 mg/100 ml; K21.00 Gastro-esophageal reflux disease with esophagitis, without bleeding; F10.90 Alcohol use, unspecified, uncomplicated; E87.6 Hypokalemia; R94.5 Abnormal results of liver function studies; R74.01 Elevation of levels of liver transaminase levels; K29.90 Gastroduodenitis, unspecified, without bleeding; R97.8 Other abnormal tumor markers; F10.939 Alcohol use, unspecified with withdrawal, unspecified; K57.30 Diverticulosis of large intestine without perforation or abscess without bleeding; R11.2 Nausea with vomiting, unspecified; R53.1 Weakness; R74.8 Abnormal levels of other serum enzymes; R63.4 Abnormal weight loss; R10.84 Generalized abdominal pain; G40.89 Other seizures